=== PATIENT | female | born 2000 | race Hispanic/Latino ===

== ENCOUNTER 2020-05-02 09:28 | Inpatient (IN) | payer BC, OTHER ==
[~2020-05-02] VITALS: Ht 157.5 cm; Wt 89.4 kg
[2020-05-02 10:01] LABS: BASOPHILS % (AUTO) 0.4 % (0.0-5.0); EOSINOPHILS % (AUTO) 0.2 % (0.0-8.0); HEMATOCRIT 38.9 % (36-48); LYMPHOCYTES % (AUTO) 20.3 % (21.0-51.0); MEAN CORPUSCULAR HEMOGLOBIN 26.6 pg (27.0-33.0); MEAN CORPUSCULAR HGB CONC 32.6 g/dL (32.0-36.0); MEAN CORPUSCULAR VOLUME 81.4 fL (80-100); MONOCYTES % (AUTO) 8.7 % (3.0-13.0); NEUTROPHILS % (AUTO) 69.8 % (40.0-77.0); PLATELET COUNT (AUTO) 206 K/uL (130-400); RED BLOOD CELL COUNT(AUTO) 4.78 MIL/uL (4.00-5.50); RED CELL DISTRIBUTION WIDTH 13.5 % (11.0-15.5); WHITE BLOOD COUNT (AUTO) 5.4 K/uL (4.8-10.8)
[2020-05-02 10:09] LABS: ABG BASE EXCESS 0.4 mmol/L (-2.0-3.0); ABG HCO3 24.1 mmol/L (21.0-28.0); ABG OXYGEN SATURATION 94.7 % (95.0-99.0); ABG PCO2 36 mmHg (32-45)
[2020-05-02 10:15] LABS: CARBON DIOXIDE 21 mmol/L (21-32); CHLORIDE 102 mmol/L (101-111); CREATININE 0.5 mg/dL (0.5-1.5); GLOMERULAR FILTR. RATE CALC 169 mL/min (>60); GLUCOSE,RANDOM 244 mg/dL (70-105); POTASSIUM 3.9 mmol/L (3.5-5.1); SODIUM SERUM 139 mmol/L (136-145); UREA NITROGEN, BLOOD 7 mg/dL (7-18)
[2020-05-02 10:16] LABS: INR 1.13 (0.85-1.15)
[2020-05-02 10:18] LABS: PARTIAL THROMBOPLASTIN TIME 25.8 SEC (26.3-35.5)
[2020-05-02 10:26] LABS: ALANINE AMINOTRANSFERASE 84 U/L (12-78); ALBUMIN 3.3 g/dL (3.5-5.0); ASPARTATE AMINOTRANSFERASE 104 U/L (10-37); BILIRUBIN,TOTAL 0.7 mg/dL (0.2-1.0); CREATINE KINASE, TOTAL 102 U/L (21-232); MYOGLOBIN 10 ng/mL (10-92); TOTAL PROTEIN, SERUM 8.1 g/dL (6.0-8.3); TROPONIN I < 0.04 ng/mL (0.00-0.06)
[2020-05-02] MEDS ORDERED: IPRATROPIUM/ALBUTEROL SULFATE 3 ML SOLUTION IH ONE (10:34)
[2020-05-02 11:20] LABS: HEMOGLOBIN A1C 12.3 % (4.0-6.0)
[2020-05-02 11:29] LABS: CRP QUANTITATIVE 44.2 mg/L (0.00-9.0)
[2020-05-02] MEDS: PHARMACY COMMUNICATION MISC SCH ×4 (11:30→23:30)
[2020-05-02] MEDS ORDERED: CEFTRIAXONE 1G VIAL IVP SCH (11:30)
[2020-05-02] MEDS: DEXAMETHASONE SOD PHOSPHATE 4 MG/ML 1ML VIAL IVP SCH (11:30)
[2020-05-02] MEDS ORDERED: ERGOCALCIFEROL (VITAMIN D2) 50,000 UNIT CAPSULE PO SCH (11:30)
[2020-05-02] MEDS ORDERED: INSULIN GLARGINE 100 UNITS/ML 10 ML VIAL SQ SCH (11:45)
[2020-05-02 11:48] LABS: THYROID STIMULATING HORMONE 3.85 uIU/mL (0.36-3.74)
[2020-05-02] MEDS ORDERED: ERGOCALCIFEROL (VITAMIN D2) 50,000 UNIT CAPSULE ONE (11:54)
[2020-05-02] MEDS ORDERED: DEXAMETHASONE SOD PHOSPHATE 10MG/ML 1ML VIAL ONE (11:54)
[2020-05-02] MEDS ORDERED: CEFTRIAXONE 1G VIAL ONE ×2 (11:55→22:33)
[2020-05-02] MEDS ORDERED: PHARMACY COMMUNICATION**REMDESIVIR ORDER MISC SCH (12:15)
[2020-05-02] MEDS ORDERED: LACTATED RINGERS 1000ML 1,000 ML IV SCH (12:30)
[2020-05-02] MEDS ORDERED: COMPOUND IV REFRIGERATED 1 EACH IVSOLN MISC PRN (12:45)
[2020-05-02] MEDS ORDERED: REMDESIVIR (EUA) 520 200 MG in 0.9% NACL 250ML 250 ML IV ONE (12:45)
[2020-05-02] MEDS ORDERED: DOXYCYCLINE HYCLATE 100 MG TABLET PO SCH (13:00)
[2020-05-02] MEDS ORDERED: DOXYCYCLINE HYCLATE 100 MG TABLET PO ONE (13:52)
[2020-05-02] MEDS ORDERED: LACTATED RINGERS 1000ML 1,000 ML IV ONE (13:52)
[2020-05-02] MEDS ORDERED: IPRATROPIUM 0.5 MG/2.5 ML INH IH PRN (14:00)
[2020-05-02] MEDS ORDERED: IPRATROPIUM 0.5 MG/2.5 ML INH IH SCH (14:00)
[2020-05-02] MEDS: INSULIN HUMULIN R 100 UNIT/ML 3ML SQ SCH ×2 (16:30→21:00)
[2020-05-02] MEDS ORDERED: INSULIN LISPRO 100 UNIT/ML 3ML SQ SCH (17:00)
[2020-05-02] MEDS ORDERED: INSULIN HUMULIN R 100 UNIT/ML 3ML ONE ×2 (17:47→22:33)
[2020-05-03 03:18] LABS: ABG BASE EXCESS -2.7 mmol/L (-2.0-3.0); ABG HCO3 21.9 mmol/L (21.0-28.0); ABG OXYGEN SATURATION 96.2 % (95.0-99.0); ABG PCO2 38 mmHg (32-45)
[2020-05-03] MEDS: PHARMACY COMMUNICATION MISC SCH ×6 (03:30→23:30)
[2020-05-03 03:45] LABS: BASOPHILS % (AUTO) 0.4 % (0.0-5.0); HEMATOCRIT 40.1 % (36-48); LYMPHOCYTES % (AUTO) 28.5 % (21.0-51.0); MEAN CORPUSCULAR HEMOGLOBIN 25.8 pg (27.0-33.0); MEAN CORPUSCULAR HGB CONC 30.9 g/dL (32.0-36.0); MEAN CORPUSCULAR VOLUME 83.4 fL (80-100); MONOCYTES % (AUTO) 12.6 % (3.0-13.0); NEUTROPHILS % (AUTO) 57.4 % (40.0-77.0); PLATELET COUNT (AUTO) 240 K/uL (130-400); RED BLOOD CELL COUNT(AUTO) 4.81 MIL/uL (4.00-5.50); RED CELL DISTRIBUTION WIDTH 13.7 % (11.0-15.5); WHITE BLOOD COUNT (AUTO) 2.8 K/uL (4.8-10.8)
[2020-05-03 04:02] LABS: ALBUMIN 3.3 g/dL (3.5-5.0); BILIRUBIN,TOTAL 0.5 mg/dL (0.2-1.0); CREATININE 0.6 mg/dL (0.5-1.5); CRP QUANTITATIVE 44.6 mg/L (0.00-9.0); POTASSIUM 3.7 mmol/L (3.5-5.1); TOTAL PROTEIN, SERUM 8.2 g/dL (6.0-8.3)
[2020-05-03 04:33] LABS: BAND NEUTROPHILS % (MANUAL) 9 % (0-2); LYMPHOCYTES % (MANUAL) 19 % (22-44); MAN.DIFF COMMENT-IMPRESSION MANUAL DIFFERENTIAL; MONOCYTES % (MANUAL) 15 % (2-9); PLATELET MORPHOLOGY COMMENT ADEQUATE; REACTIVE LYMPHOCYTES 2 % (0-0); SEGMENTED NEUTROPHILS % 55 % (40-70)
[2020-05-03] MEDS: REMDESIVIR LABS MISC SCH (06:00)
[2020-05-03] MEDS: INSULIN HUMULIN R 100 UNIT/ML 3ML SQ SCH ×4 (07:30→21:00)
[2020-05-03] MEDS ORDERED: INSULIN LISPRO 100 UNIT/ML 3ML SQ SCH (07:30)
[2020-05-03] MEDS: ZINC SULFATE 220 CAPSULE PO SCH (09:00)
[2020-05-03] MEDS: ASCORBIC ACID 500 MG TAB PO SCH (09:00)
[2020-05-03] MEDS ORDERED: INSULIN GLARGINE 100 UNITS/ML 10 ML VIAL SQ ONE (09:00)
[2020-05-03] MEDS ORDERED: INSULIN GLARGINE 100 UNITS/ML 10 ML VIAL SQ SCH (09:00)
[2020-05-03] MEDS: ENOXAPARIN SODIUM 40 MG/0.4 ML SYRINGE SQ SCH ×2 (09:00→21:00)
[2020-05-03] MEDS: DEXAMETHASONE SOD PHOSPHATE 4 MG/ML 1ML VIAL IVP SCH (09:00)
[2020-05-03] MEDS ORDERED: DEXAMETHASONE SOD PHOSPHATE 10MG/ML 1ML VIAL ONE (09:15)
[2020-05-03] MEDS ORDERED: ZINC SULFATE 220 CAPSULE ONE (09:16)
[2020-05-03] MEDS ORDERED: LACTATED RINGERS 1000ML 1,000 ML IV ONE (09:16)
[2020-05-03] MEDS ORDERED: CEFTRIAXONE 1G VIAL ONE (09:16)
[2020-05-03] MEDS ORDERED: ASCORBIC ACID 500 MG TAB ONE (09:16)
[2020-05-03] MEDS ORDERED: ENOXAPARIN SODIUM 40 MG/0.4 ML SYRINGE SQ ONE (12:32)
[2020-05-03] MEDS ORDERED: INSULIN HUMULIN R 100 UNIT/ML 3ML ONE ×2 (12:33→17:59)
[2020-05-03] MEDS ORDERED: ENOXAPARIN SODIUM 40 MG/0.4 ML SYRINGE SQ SCH (14:00)
[2020-05-04] MEDS ORDERED: DOXYCYCLINE HYCLATE 100 MG TABLET PO ONE (00:12)
[2020-05-04] MEDS ORDERED: CEFTRIAXONE 1G VIAL ONE (00:12)
[2020-05-04] MEDS ORDERED: INSULIN HUMULIN R 100 UNIT/ML 3ML ONE (01:11)
[2020-05-04] MEDS: PHARMACY COMMUNICATION MISC SCH ×6 (03:30→23:30)
[2020-05-04 05:18] LABS: BASOPHILS % (AUTO) 0.2 % (0.0-5.0); HEMATOCRIT 41.3 % (36-48); LYMPHOCYTES % (AUTO) 30.6 % (21.0-51.0); MEAN CORPUSCULAR HEMOGLOBIN 26.4 pg (27.0-33.0); MEAN CORPUSCULAR HGB CONC 31.7 g/dL (32.0-36.0); MEAN CORPUSCULAR VOLUME 83.1 fL (80-100); MONOCYTES % (AUTO) 9.2 % (3.0-13.0); PLATELET COUNT (AUTO) 281 K/uL (130-400); RED BLOOD CELL COUNT(AUTO) 4.97 MIL/uL (4.00-5.50); RED CELL DISTRIBUTION WIDTH 13.6 % (11.0-15.5); WHITE BLOOD COUNT (AUTO) 4.9 K/uL (4.8-10.8)
[2020-05-04 05:39] LABS: ALBUMIN 3.4 g/dL (3.5-5.0); BILIRUBIN,TOTAL 0.3 mg/dL (0.2-1.0); CREATININE 0.6 mg/dL (0.5-1.5); CRP QUANTITATIVE 15.4 mg/L (0.00-9.0); MAGNESIUM 1.9 mg/dL (1.80-2.40); POTASSIUM 3.5 mmol/L (3.5-5.1); TOTAL PROTEIN, SERUM 8.1 g/dL (6.0-8.3)
[2020-05-04] MEDS: REMDESIVIR LABS MISC SCH (06:00)
[2020-05-04] MEDS: INSULIN HUMULIN R 100 UNIT/ML 3ML SQ SCH ×7 (07:30→21:23)
[2020-05-04] MEDS ORDERED: KCL 20 MEQ ERTAB PO SCH (07:45)
[2020-05-04] MEDS: INSULIN GLARGINE 100 UNITS/ML 10 ML VIAL SQ SCH (10:21)
[2020-05-04] MEDS: DEXAMETHASONE SOD PHOSPHATE 4 MG/ML 1ML VIAL IVP SCH (10:25)
[2020-05-04] MEDS: ENOXAPARIN SODIUM 40 MG/0.4 ML SYRINGE SQ SCH (10:28)
[2020-05-04] MEDS: ZINC SULFATE 220 CAPSULE PO SCH (10:29)
[2020-05-04] MEDS: ASCORBIC ACID 500 MG TAB PO SCH (10:30)
[2020-05-04 10:38] VITALS: BP 120/77
[2020-05-04 12:25] VITALS: BP 117/83
[2020-05-04] MEDS: REMDESIVIR (EUA) 520 100 MG in 0.9% NACL 250ML 250 ML IV SCH ×2 (15:04→15:06)
[2020-05-04 16:10] VITALS: BP 105/61
[2020-05-04] MEDS: APIXABAN 2.5 MG TABLET PO SCH (19:56)
[2020-05-04 20:06] VITALS: BP 93/47
[2020-05-05 00:15] VITALS: BP 89/42
[2020-05-05 04:10] VITALS: BP 101/54
[2020-05-05 04:44] LABS: BASOPHILS % (AUTO) 0.3 % (0.0-5.0); EOSINOPHILS % (AUTO) 0.2 % (0.0-8.0); HEMATOCRIT 38.6 % (36-48); LYMPHOCYTES % (AUTO) 31.2 % (21.0-51.0); MEAN CORPUSCULAR HEMOGLOBIN 25.9 pg (27.0-33.0); MEAN CORPUSCULAR HGB CONC 31.3 g/dL (32.0-36.0); MEAN CORPUSCULAR VOLUME 82.5 fL (80-100); MONOCYTES % (AUTO) 9.1 % (3.0-13.0); NEUTROPHILS % (AUTO) 58.2 % (40.0-77.0); PLATELET COUNT (AUTO) 247 K/uL (130-400); RED BLOOD CELL COUNT(AUTO) 4.68 MIL/uL (4.00-5.50); RED CELL DISTRIBUTION WIDTH 13.5 % (11.0-15.5); WHITE BLOOD COUNT (AUTO) 6.3 K/uL (4.8-10.8)
[2020-05-05 05:34] LABS: ALBUMIN 3.1 g/dL (3.5-5.0); BILIRUBIN,DIRECT 0.1 mg/dL (0.0-0.3); BILIRUBIN,TOTAL 0.4 mg/dL (0.2-1.0); CREATININE 0.7 mg/dL (0.5-1.5); CRP QUANTITATIVE 7.5 mg/L (0.00-9.0); POTASSIUM 3.6 mmol/L (3.5-5.1); TOTAL PROTEIN, SERUM 7.3 g/dL (6.0-8.3)
[2020-05-05] MEDS: REMDESIVIR LABS MISC SCH (06:00)
[2020-05-05] MEDS: INSULIN HUMULIN R 100 UNIT/ML 3ML SQ SCH ×7 (06:52→21:43)
[2020-05-05 08:27] VITALS: BP 103/66
[2020-05-05] MEDS: INSULIN GLARGINE 100 UNITS/ML 10 ML VIAL SQ SCH (09:00)
[2020-05-05] MEDS: DEXAMETHASONE 4 MG TAB PO SCH (09:42)
[2020-05-05] MEDS: APIXABAN 2.5 MG TABLET PO SCH ×2 (09:42→21:41)
[2020-05-05] MEDS: ASCORBIC ACID 500 MG TAB PO SCH (09:42)
[2020-05-05] MEDS: ZINC SULFATE 220 CAPSULE PO SCH (09:42)
[2020-05-05 12:15] VITALS: BP 114/72
[2020-05-05] MEDS: REMDESIVIR (EUA) 520 100 MG in 0.9% NACL 250ML 250 ML IV SCH (14:20)
[2020-05-05 16:05] VITALS: BP 106/61
[2020-05-05 19:55] VITALS: BP 104/62
[2020-05-06 00:03] VITALS: BP 103/65
[2020-05-06 03:55] VITALS: BP 95/64
[2020-05-06 04:29] LABS: BASOPHILS % (AUTO) 0.1 % (0.0-5.0); EOSINOPHILS % (AUTO) 0.1 % (0.0-8.0); HEMATOCRIT 40.5 % (36-48); MEAN CORPUSCULAR HEMOGLOBIN 26.1 pg (27.0-33.0); MEAN CORPUSCULAR HGB CONC 32.1 g/dL (32.0-36.0); MEAN CORPUSCULAR VOLUME 81.3 fL (80-100); MONOCYTES % (AUTO) 7.8 % (3.0-13.0); PLATELET COUNT (AUTO) 388 K/uL (130-400); RED BLOOD CELL COUNT(AUTO) 4.98 MIL/uL (4.00-5.50); RED CELL DISTRIBUTION WIDTH 13.3 % (11.0-15.5); WHITE BLOOD COUNT (AUTO) 6.9 K/uL (4.8-10.8)
[2020-05-06 04:45] LABS: ALBUMIN 3.2 g/dL (3.5-5.0); BILIRUBIN,DIRECT 0.2 mg/dL (0.0-0.3); BILIRUBIN,TOTAL 0.5 mg/dL (0.2-1.0); CREATININE 0.6 mg/dL (0.5-1.5); POTASSIUM 3.3 mmol/L (3.5-5.1); TOTAL PROTEIN, SERUM 7.3 g/dL (6.0-8.3)
[2020-05-06] MEDS: REMDESIVIR LABS MISC SCH (06:00)
[2020-05-06] MEDS ORDERED: DEXA4 PO (06:56)
[2020-05-06] MEDS ORDERED: APIX2.5T PO (06:56)
[2020-05-06] MEDS: INSULIN HUMULIN R 100 UNIT/ML 3ML SQ SCH ×6 (07:30→17:08)
[2020-05-06] MEDS: APIXABAN 2.5 MG TABLET PO SCH (08:46)
[2020-05-06] MEDS: ASCORBIC ACID 500 MG TAB PO SCH (08:47)
[2020-05-06] MEDS: ZINC SULFATE 220 CAPSULE PO SCH (08:47)
[2020-05-06] MEDS: DEXAMETHASONE 4 MG TAB PO SCH (08:47)
[2020-05-06] MEDS: INSULIN GLARGINE 100 UNITS/ML 10 ML VIAL SQ SCH (08:49)
[2020-05-06 09:40] VITALS: BP 117/68
[2020-05-06 12:18] VITALS: BP 117/74
[2020-05-06] MEDS: REMDESIVIR (EUA) 520 100 MG in 0.9% NACL 250ML 250 ML IV SCH (14:33)
[2020-05-06] MEDS: PHARMACY COMMUNICATION MISC SCH (15:30)
[2020-05-06 16:45] VITALS: BP 107/56
[2020-05-06] MEDS ORDERED: INSU3INS3 SQ (17:09)
[2020-05-06] MEDS ORDERED: INSU200I SQ (17:15)
[2020-05-06] MEDS ORDERED: PEN1DIS.48 MC (17:20)
== END 2020-05-06 19:35 | disposition home or self-care (01) | DRG 177 ==
LOC: EDH 09:28 → EDHIP 11:09 → OBSVTOIN 11:09 → INTOOBSV 11:09 → 4BH 05-04 09:48
PROVIDERS: ADMIT Internal Medicine; ATTEND Internal Medicine
PROC: XW033E5 Introduction of Remdesivir Anti-infective into Peripheral Vein, Percutaneous Approach, New Technology Group 5 (ICD-10-PCS; principal; 2020-05-02)
PROC: XW13325 Transfusion of Convalescent Plasma (Nonautologous) into Peripheral Vein, Percutaneous Approach, New Technology Group 5 (ICD-10-PCS; 2020-05-02)
DX: U07.1 COVID-19 (principal); J96.01 Acute respiratory failure with hypoxia; J12.82 Pneumonia due to coronavirus disease 2019; A08.39 Other viral enteritis; E11.65 Type 2 diabetes mellitus with hyperglycemia; J45.909 Unspecified asthma, uncomplicated; E66.01 Morbid (severe) obesity due to excess calories; F43.9 Reaction to severe stress, unspecified; T38.0X5A Adverse effect of glucocorticoids and synthetic analogues, initial encounter; Z83.3 Family history of diabetes mellitus; Z68.36 Body mass index [BMI] 36.0-36.9, adult; Y92.89 Other specified places as the place of occurrence of the external cause
CPT/HCPCS: 36415; 36600; 71045; 80048; 80053; 80076; 82550; 82728; 82803; 82948; 83036; 83605; 83615; 83735; 83874; 84145; 84443; 84484; 84703; 85025; 85378; 85610; 85730; 86140; 86900; 86901; 86927; 87040; 87426; 87804; 93005; 93306; 93356; 93970; 94640; 99291; G0378; J0696; J1100; J1650; J1815; J7050; J7120; J8540

== ENCOUNTER 2023-04-29 18:57 | Emergency (ER) | payer OTHER, BC ==
[~2023-04-29] VITALS: Ht 157.5 cm; Wt 85.3 kg
[~2023-04-29 18:57] MED LIST: APIX2.5T PO; DEXA4 PO; INSU200I SQ; INSU3INS3 SQ; PEN1DIS.48 MC
[2023-04-29] MEDS ORDERED: IBUP-1493 PO (22:48)
[2023-04-29] MEDS ORDERED: CYCL-309 PO (22:48)
[2023-04-29 23:05] VITALS: BP 122/72; PULSE 88; RESP 18; O2SAT 98
== END 2023-04-29 23:13 | disposition home or self-care (01) ==
LOC: EDH 18:57
DX: S16.1XXA Strain of muscle, fascia and tendon at neck level, initial encounter (principal); J45.909 Unspecified asthma, uncomplicated; Z79.01 Long term (current) use of anticoagulants; Z79.52 Long term (current) use of systemic steroids; V89.2XXA Person injured in unspecified motor-vehicle accident, traffic, initial encounter; Y93.89 Activity, other specified; Y92.89 Other specified places as the place of occurrence of the external cause; Y99.8 Other external cause status
CPT/HCPCS: 70450; 72125; 81025